=== PATIENT | male | born 1945 | race Hispanic/Latino ===

== ENCOUNTER 2018-09-14 12:22 | Outpatient (CLI) | payer MEDICARE, BC | END 2018-09-14 12:23 | disposition home or self-care (01) | LOC: C.PAT 12:22 | DX: M17.12 Unilateral primary osteoarthritis, left knee (principal) ==

== ENCOUNTER 2018-09-15 06:31 | Day surgery (SDC) | payer MEDICARE, BC ==
[2018-09-14 09:17] VITALS: BMI 41.3
[2018-09-15 07:36] VITALS: PULSE 86; RESP 18; TEMP 98.3; O2SAT 98
[2018-09-15] MEDS ORDERED: ceFAZolin 1 gm in NS 2 GM/200 ML BAG IVPB ONE (07:40)
[2018-09-15] MEDS ORDERED: Lidocaine Hydrochloride 20 ML INJ ONE (07:40)
[2018-09-15] MEDS ORDERED: Sodium Chloride 0.9% 20 ML IV ONE (07:44)
[2018-09-15] MEDS ORDERED: Bacitracin 500 Units/gm Oint Foilpak UD ONE (08:34)
--- NOTE | 2018-09-15 08:53 | PCM.SURG1 ---
Surgeon's Initial Post Op Note - Surgeon's Notes Surgeon: Jose Domingo MD Alignment Technician: Adia Stapleton PA-C Type of Anesthesia: Local Pre-Operative Diagnosis: L knee osteoarthritis Operative Findings: see full note Post-Operative Diagnosis: same Operation Performed: PRP and bone marrow concentration aspiration injection to left knee Specimen/Specimens Removed: none Estimated Blood Loss: EBL {In ML}: 1 Blood Products Given: N/A Drains Used: No Drains Post-Op Condition: Fair Date of Surgery/Procedure: 09/15/18 Time of Surgery/Procedure: 08:53
[2018-09-15 09:25] VITALS: BP 123/64
--- NOTE | 2018-09-15 12:17 | OP ---
PROCEDURE DATE: 09/15/2018 PREOPERATIVE DIAGNOSIS: Left knee osteoarthritis. POSTOPERATIVE DIAGNOSIS: Left knee osteoarthritis. PROCEDURE: Left knee injection with mesenchymal stem cells and platelet rich plasma. SURGEON: Ezequiel Domingo MD. ANESTHESIA: Sedation with local. COMPLICATIONS: None. ESTIMATED BLOOD LOSS: 1 mL at the incision site over the iliac crest. INDICATIONS FOR PROCEDURE: This is a 73-year-old gentleman with longstanding left knee arthritis. Clinical examination was a medial and lateral joint line tenderness pain with axial load. Pain at the extremes of knee flexion. Radiographic examination consistent with degenerative joint disease of the left knee. After a long period of failed management including medication, activity modification, viscosupplementation injection as well as cortisone injection, treatment options were discussed including left total knee arthroplasty as well as stem cells and PRP injections. All the options were discussed and the patient opted to proceed with the left knee PRP and stem cell injection. The patient understood that injections may only provide short-term relief or may not provide any significant relief at all and that later arthroplasty may be warranted. He understood these risks and informed consent was obtained. OPERATIVE PROCEDURE: After surgical site was finally verified in the perioperative holding area, the patient was taken to the operating room and placed supine on the operating room table. After initiation of sedation, the patient received 2 g of Ancef IV. The area over the anterosuperior iliac spine was palpated and this was prepped and draped in a sterile fashion. Approximately 4 cm proximal to the ASIS, a small incision was made and using a clamp, soft tissue was dissected down bluntly to the iliac crest. At this point, the trocar for the stem cell harvest on to the iliac crest and inserted into the bone. Subsequently, approximately 50 mL of bone marrow was aspirated easily without difficulty. Once this was done, the trocar was removed and passed off the field to be placed in the centrifuge. Next, the small incision was closed using interrupted 3-0 nylon suture and a sterile dressing was applied. While this was being done, blood was peripherally harvested for the PRP and this was also prepared in a separate machine. Approximately 10 mL of leukocyte-poor PRP was harvested and approximately 3.5 to 4 mL of stem cell were harvested. Both aspirates were then injected into the left knee using sterile conditions. The patient tolerated the procedure well. The patient was awakened from anesthesia and taken to recovery room in stable condition. Ezequiel Domingo MD
== END 2018-09-15 09:41 | disposition home or self-care (01) ==
LOC: C.SDS 06:31
PROVIDERS: ATTEND Orthopaedic Surgery
DX: M17.12 Unilateral primary osteoarthritis, left knee (principal); I48.91 Unspecified atrial fibrillation; J44.9 Chronic obstructive pulmonary disease, unspecified; G47.33 Obstructive sleep apnea (adult) (pediatric); E11.9 Type 2 diabetes mellitus without complications; E78.5 Hyperlipidemia, unspecified; Z96.652 Presence of left artificial knee joint; I25.10 Atherosclerotic heart disease of native coronary artery without angina pectoris; M19.90 Unspecified osteoarthritis, unspecified site
CPT/HCPCS: 20610; 82948; J0690; J1644

== ENCOUNTER 2018-11-16 08:56 | Outpatient (CLI) | payer MEDICARE, BC | END 2018-11-16 08:57 | disposition home or self-care (01) | LOC: C.RADIC 08:56 | DX: R05 Cough (principal) ==